=== PATIENT | female | born 1995 | race Native Hawaiian/Other Pacific Islander ===

== ENCOUNTER 2016-10-21 08:18 | Emergency (ER) | payer OTHER ==
[~2016-10-21] VITALS: Ht 157.5 cm; Wt 47.2 kg
[2016-10-21 08:25] VITALS: TEMP 97.7
[2016-10-21 09:08] VITALS: BP 103/75
== END 2016-10-21 09:09 | disposition home or self-care (01) ==
LOC: ED 08:18
DX: N76.0 Acute vaginitis (principal)
CPT/HCPCS: 99282; J0696

== ENCOUNTER 2019-06-22 13:24 | Emergency (ER) | payer OTHER | END 2019-06-22 13:36 | disposition home or self-care (01) | LOC: ED 13:24 | DX: S69.91XA Unspecified injury of right wrist, hand and finger(s), initial encounter (principal) | CPT/HCPCS: 99281 ==

== ENCOUNTER 2022-07-31 13:15 | Emergency (ER) | payer OTHER ==
[~2022-07-31] VITALS: Ht 157.5 cm; Wt 72.6 kg
[2022-07-31 13:20] VITALS: BP 140/85; TEMP 98
== END 2022-07-31 14:00 | disposition home or self-care (01) ==
LOC: ED 13:15
DX: L72.3 Sebaceous cyst (principal)
CPT/HCPCS: 99281